=== PATIENT | male | born 1955 | race Caucasian/White ===

== ENCOUNTER 2021-04-25 14:07 | Emergency (ER) | payer MEDICARE, BC ==
[~2021-04-25] VITALS: Ht 167.6 cm; Wt 72.6 kg
--- NOTE | 2021-04-25 14:07 | NUR ---
Pt bib RA 88 for ground level fall s/p syncopal episode last night around 0400. 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 Lacs have not been clean and there is copious amts of dried, caked on blood from lacs. VSS 116/58, 73bpm, 16rpm, 99% RA. Pt AAOx4, denies any nausea, sob, dizziness or discomfort. Mild pain from lacs and contusions. No s/sx of distress present.
[2021-04-25] MEDS ORDERED: METH4TAB21 (14:10)
[2021-04-25] MEDS ORDERED: TDAP DIPH,PERTUSS,TET VAC/PF 0.5 ML DISP.SYRIN IM ONE ×2 (14:30→15:13)
--- NOTE | 2021-04-25 14:30 | NUR ---
20g angio inserted into Rt forearm without difficulty. Blood collected and sent, IV flushing well.
[2021-04-25 14:41] LABS: MEAN CORPUSCULAR HEMOGLOBIN 31.3 uug (23.8-33.4); PLATELET COUNT (AUTO) 486 K/uL (152-348)
--- NOTE | 2021-04-25 14:45 | NUR ---
[facility] notified; FAX facesheet, HP, and imaging reports to [phone].
[2021-04-25 14:47] LABS: CARBON DIOXIDE 31 mmol/L (21-32); CHLORIDE 98 mmol/L (98-107); CREATININE 0.7 mg/dL (0.6-1.3); GLUCOSE 103 mg/dL (74-106); POTASSIUM 3.7 mmol/L (3.5-5.1); UREA NITROGEN, BLOOD 13 mg/dL (7-18)
[2021-04-25 14:53] LABS: ALANINE AMINOTRANSFERASE 18 U/L (16-63); ALKALINE PHOSPHATASE 40 U/L (50-136); ASPARTATE AMINOTRANSFERASE 14 U/L (15-37)
--- NOTE | 2021-04-25 14:58 | NUR ---
Pt in CT for ct of head and face.
--- NOTE | 2021-04-25 15:14 | NUR ---
Pt back from CT, test was performed without difficutly. Disk of scan already copied for receiving facility. Pt given Tdap shot without difficulty. Pt tolerated well with no s/sx of reaction.
--- NOTE | 2021-04-25 15:49 | NUR ---
Full summary report with CT results faxxed to [facility] at [phone]. Awaiting placement for pt to trauma center.
--- NOTE | 2021-04-25 15:55 | NUR ---
Pt has excellent VS. 104/57, 75bpm, 16rpm, 100% RA. NSR without ectopy, Strong and reg pulses x 4ext, strong and equal competitive athlete strength bilat. 4 or 5/10 pain in face, pt refusing pain medication. Denies nausea, sob, dizziness or discomfort. No s/sx of distress present.
--- NOTE | 2021-04-25 17:42 | NUR ---
[facility] transfer center called for report. Thorough report given to Andrew ALBERTO using SBAR method. [facility] called for ride, ETA of 45min-60min given by dispatch. Transfer packet complete and pt waiting to be picked up for transport to [facility]. Pt 's vss, PE WNL, steady gait, denies nausea, sob, dizziness. lungs clear, NSR without ectopy. RRR without g/r/m.
--- NOTE | 2021-04-25 18:10 | NUR ---
Pt loaded up by automobile salesman. Possessions with pt's son. transfer packet taken by son including CT scan disk, summary report and H&P. Pt and son very thankful of services received. escorted out via stretcher by automobile salesman accompanied by son.
== END 2021-04-25 18:15 | disposition short-term general hospital (02) ==
LOC: ER 14:10
DX: S01.81XA Laceration without foreign body of other part of head, initial encounter (principal); S01.01XA Laceration without foreign body of scalp, initial encounter; W18.30XA Fall on same level, unspecified, initial encounter; Y92.019 Unspecified place in single-family (private) house as the place of occurrence of the external cause; C90.00 Multiple myeloma not having achieved remission; Z92.21 Personal history of antineoplastic chemotherapy; Z20.822 Contact with and (suspected) exposure to COVID-19; M79.89 Other specified soft tissue disorders; S06.9X9A Unspecified intracranial injury with loss of consciousness of unspecified duration, initial encounter; Z79.52 Long term (current) use of systemic steroids
CPT/HCPCS: 36415; 70030-TC; 70450; 70486; 71045; 85025; 85610; 86850; 86900; 86901; 90715; A4217; A4663